=== PATIENT | male | born 1950 | race Hispanic/Latino ===

== ENCOUNTER 2017-01-11 17:33 | Emergency (ER) | payer OTHER ==
[~2017-01-11] VITALS: Ht 167.6 cm; Wt 68.2 kg
[2017-01-11 17:38] VITALS: BP 108/69; PULSE 92; RESP 16; O2SAT 97
[2017-01-11 20:16] VITALS: BP 108/63; PULSE 72; RESP 12; O2SAT 99
--- NOTE | 2017-01-11 20:39 | ED.REPORT ---
HPI-General Illness Date of Service Jan 11, 2017 ED Provider: Sea Bledsoe MD The pt is a 66 year old male with a history of anxiety and "possible anemia" who is brought to the ED due to syncope. The pt was walking into a store at 11: 00 today when he began to feel flushed and lightheaded. He then experienced a brief syncopal episode, waking up on the ground to another customer helping him to his feet. The pt landed on a carpet and admits to hitting his head. The pt experienced a similar episode yesterday after he stood up rapidly. He also admits to mild fatigue and chest congestion several days ago. These symptoms has since resolved and he does not believe that they are related to his episode today. He denies palpitations, racing heart, nausea, diaphoresis, hematochezia, black stools, decreased appetite or decreased fluid intake. He does admit that he has been feeling very anxious and that he may been hyperventilating prior to passing out. He states that he had tingling around his lips and his fingertips which in the past has been a sign that he is having a panic attack. Nursing Notes Stated Complaint: FAINTING/SEEN BY EMT THIS AM Chief Complaint: General Complaint Nursing Notes Reviewed: Yes Allergies: Coded Allergies: Contrast Media (Verified Allergy, Severe, 01/11/17) Scheduled Fluoxetine (Fluoxetine) 20 Mg Capsule 20 MG PO QAM General Time Seen by MD: 19:27 Chief Complaint Other (Syncope) Hx Obtained From: Patient, EMS Arrived By: Ambulance Sudden in Onset?: Yes Onset Occurred: 1 - 4 hours ago Recent Healthcare: Recent doctor visit Similar Sx Previous: Yes Past Medical History Past Medical History anxiety possible anemia Past Surgical History none reported Smoking History Unknown if Ever Smoker Ambulatory Status Independent Review of Systems chest congestion, resolved denies decreased appetite or decreased fluid intake denies melena Full Review of Systems Constitutional: Reports: Fatigue (resolved) Respiratory: Denies: Non-productive cough, Shortness of breath Cardiovascular: Denies: Chest pain GI: Denies: Abdominal pain, Hematochezia, Nausea Musculoskeletal: Denies: Back pain, Neck pain Skin: Denies Diaphoresis, Denies Rash Neurologic: Reports: Lightheaded, Syncope Complete sys rev & neg: except as marked. Physical Exam Vital Signs Vital Signs Date Time Temp Pulse Resp B/P Pulse Ox O2 Delivery O2 Flow Rate FiO2 01/11/17 22:33 36.4 76 20 117/63 100 Room Air 01/11/17 20:16 72 12 108/63 99 Room Air 01/11/17 17:38 92 16 108/69 97 Room Air Initial VS: Reviewed General/Constitutional: Awake, Alert Head / Eyes: Atraumatic, Normocephalic, PERRL, EOMI ENT: Atraumatic, Airway patent Mouth: Positive: Mucous membranes dry Neck: Atraumatic, Supple, Full range of motion no cervical tenderness, bony deformity or step-offs Respiratory / Chest: Atraumatic, Breath sounds NL, Breath sounds = bilat, No respiratory distress Cardiovascular: Heart rate NL, Regular rhythm, Heart sounds NL, No gallop, No murmurs, No rubs good distal pulses Abdomen: Atraumatic, Soft, Non-tender, No guarding, No rebound, No distention Back: Atraumatic, Full range of motion Upper Extremities Upper Extremity / MS: Atraumatic, Full range of motion Lower Extremity / Pelvis / MS: Atraumatic, Full range of motion no calf swelling or tenderness Skin: Atraumatic, Color NL, No rash, Warm, Dry Neurologic: Oriented X3, Speech NL, No motor deficits, No sensory deficits, CN II - XII intact no lateralizing neurological findings no pronator drift Psychiatric: Affect NL, Mood NL Interpretation & Diagnostics Lab Results Interpretation Result Diagram: 01/11/17210401/11/172104 Test 01/11/17 21:05 01/11/17 21:32 01/11/17 22:16 White Blood Count 6.5th/mm3 (3.8-10.1) Red Blood Count 4.01mil/mm3 (4.40-5.80) Hemoglobin 12.8g/dL (13.8-17.2) Hematocrit 38.1% (41.0-50.0) Mean Corpuscular Volume 95.0fL (81-100) Mean Corpuscular Hemoglobin 31.9pg (27.0-35.0) Mean Corpuscular Hemoglobin Concent 33.6% (32.0-37.0) Red Cell Distribution Width 13.5% (12.3-15.4) Platelet Count 234bil/L (150-400) Neutrophils (%) (Auto) 53.1% (40-74) Lymphocytes (%) (Auto) 32.4% (14-46) Monocytes (%) (Auto) 10.3% (4-12) Eosinophils (%) (Auto) 3.8% (0-5) Basophils (%) (Auto) 0.2% (0-3) Sodium Level 137mEq/L (134-144) Potassium Level 4.1mEq/L (3.5-5.2) Chloride Level 100mEq/L (97-108) Carbon Dioxide Level 24mmol/L (18-29) Blood Urea Nitrogen 15mg/dL (8-27) Creatinine 0.87mg/dL (0.76-1.27) Estimat Glomerular Filtration Rate 93mL/min (>59) Glucose Level 115mg/dL (60-99) Calcium Level 8.7mg/dL (8.5-10.1) Magnesium Level 2.2mg/dL (1.6-2.6) Total Bilirubin 0.3mg/dL (0.0-1.2) Aspartate Amino Transf (AST/SGOT) 29U/L (0-50) Alanine Aminotransferase (ALT/SGPT) 32U/L (0-44) Alkaline Phosphatase 88U/L (25-160) Troponin T 0.010ug/L (0.0-0.011) Total Protein 8.8g/dL (6.4-8.4) Albumin 3.8g/dL (3.4-5.0) Hold Pereira Top Tube Received (Received) Hold Urine Received (Received) ECG Interpretation ECG Interpretation: normal sinus rhythm with a rate of 69 normal axis normal interval no ST segment elevation no T wave inversions no prior EKG available for comparison Time: 19:48 Interpreted by: ED physician CT Head Interpretation IMPRESSION: 1. No acute intracranial abnormality. Dictated by: Shadi Vargas M.D. on 01/11/2017 at 21:23 Approved by: Shadi Vargas M.D. on 01/11/2017 at 21:25 Interpretation / Wet Read by: Interpret - Radiologist Re-Eval/Medical Decision Med Decision/Clinical Course The pt is a 66 year old male with a history of anxiety and "possible anemia" who is brought to the ED due to syncope. The pt was walking into a store at 11: 00 today when he began to feel flushed and lightheaded. He then experienced a brief syncopal episode, waking up on the ground to another customer helping him to his feet. The pt landed on a carpet and admits to hitting his head. The pt experienced a similar episode yesterday after he stood up rapidly. He also admits to mild fatigue and chest congestion several days ago. These symptoms has since resolved and he does not believe that they are related to his episode today. He denies palpitations, racing heart, nausea, diaphoresis, hematochezia, black stools, decreased appetite. He does admit that he may be somewhat dehydrated and that he has not been drinking enough fluids. He does admit that he has been feeling very anxious and that he may been hyperventilating prior to passing out. He states that he had tingling around his lips and his fingertips which in the past has been a sign that he is having a panic attack. 1 liter fluid bolus given in ED. EKG: normal sinus rhythm with a rate of 69 normal axis normal interval no ST segment elevation no T wave inversions no prior EKG available for comparison CBC unremarkable CMP unremarkable Troponin negative CT head unremarkable CT Head: IMPRESSION: 1. No acute intracranial abnormality. The patient presents with transient altered level of consciousness. Based on history, lack of post-ictal phase, or incontinence I think it is unlikely to be related to seizure. DDx includes but is not limited to: ACS, arrhythmia, PE, dissection, AAA, hypovolemia or vasovagal syncope. ECG does not show ischemia or conduction abnormality. There were no arrhythmias on telemetry but this cannot be excluded. PE, dissection and AAA are unlikely based on history, exam and evaluation. Patient has history consistent with dehydration, had positive orthostatic vital sign changes and improvement with IV hydration. I suspect there may also be a degree of panic/anxiety and hyperventilation as well. Patient does not desire admission for further workup and would like to follow- up with his primary care physician outpatient basis. At this time he is stable and in no apparent distress. Feel that this is appropriate. Prior to discharge follow-up and return precautions were reviewed in detail with the patient who verbalized understanding and agreement with the plan. The patient was discharged in stable condition. Source of Hx: Old records Time of Eval: 22:30 Patient Status: Condition improved Re-Evaluation/Progress Note: Pt rechecked, who is comfortable. The diagnosis and plan for discharge are discussed. The pt understands and agrees with the plan. All questions are addressed at this time. Counseled Regarding: Diagnosis, Lab results, Need for follow-up, When/why to return to ED Discharge & Departure Primary Impression: Syncope Syncope type: unspecified Qualified Code: R55 - Syncope and collapse Additional Impressions: Dehydration Anxiety Head trauma Encounter type: initial encounter Qualified Code: S09.90XA - Unspecified injury of head, initial encounter Disposition: Home Discharge Condition All VS Reviewed: Yes Condition: Stable Patient Instructions: Syncope (ED) Additional Instructions: Thank you for seeking care at the emergency room. Our primary goal today in the ED was to evaluate you for any life-threatening conditions. Your evaluation was reassuring. You should follow-up with your primary doctor in the next week. In the meantime , drink plenty of fluids, stand up slowly and sit down immediately if he started to feel lightheaded. You should return to the ED immediately if you develop any recurrent events of passing out, palpitations, headache, confusion, fevers, vomiting, cough, shortness of breath, chest pain, lightheadedness, weakness or any other concerning signs or symptoms. Thank you for letting us partake in your care today. Referrals: Nash Chapman MD (PCP) Scribe Attestation Portions of this note were transcribed by Maria L Dumont. I, Dr. Bledsoe personally performed the history, physical exam and medical decision-making; I reviewed and confirmed the accuracy of the information in the transcribed note. copies to: Nash Chapman MD, Beck O MD Jan 11, 2017 20:39 MARIA L DUMONT Jan 11, 2017 20:46
[2017-01-11] MEDS ORDERED: FLUO20CA25 PO (20:40)
[2017-01-11] MEDS ORDERED: 0.9% Sodium Chloride 1,000 ML IV ONE (20:45)
[2017-01-11 21:12] LABS: BASOPHILS % (AUTO) 0.2 % (0-3); EOSINOPHILS % (AUTO) 3.8 % (0-5); MONOCYTES % (AUTO) 10.3 % (4-12); Mean Corpuscular Hemoglobin 31.9 pg (27.0-35.0); NEUTROPHILS % (AUTO) 53.1 % (40-74); Platelet Count 234 bil/L (150-400)
--- NOTE | 2017-01-11 21:27 | DRSVH ---
PROCEDURE: CT BRAIN WITHOUT CONTRAST ([id number]) INDICATIONS: trauma TECHNIQUE: Noncontrast 4.5 mm thick angled axial sections acquired from the foramen magnum to the vertex, with c oronal reformats. COMPARISON: None. FINDINGS: Image quality: Excellent. CSF spaces: Basal cisterns are patent. No extra-axial fluid collections. There is mild cerebral vo lume loss with prominence of the ventricles and sulci. Brain: No intracranial hemorrhage, mass, mass effect. Acuna-white matter interface is preserved. Skull and face: Calvarium and visualized facial bones are intact, without suspicious lesions. Sinuses: Visualized sinuses and mastoids are clear. IMPRESSION: 1. No acute intracranial abnormality. Dictated by: Shadi Vargas M.D. on 01/11/2017 at 21:23 Approved by: Shadi Vargas M.D. on 01/11/2017 at 21:25
[2017-01-11 21:29] LABS: TROPONIN T 0.01 ug/L (0.0-0.011)
[2017-01-11 21:40] LABS: Magnesium 2.2 mg/dL (1.6-2.6)
[2017-01-11 22:33] VITALS: BP 117/63; PULSE 76; RESP 20; O2SAT 100
== END 2017-01-11 22:33 | disposition home or self-care (01) ==
LOC: SED 17:33
DX: R55 Syncope and collapse (principal); S09.8XXA Other specified injuries of head, initial encounter; E86.0 Dehydration; F41.9 Anxiety disorder, unspecified; W01.0XXA Fall on same level from slipping, tripping and stumbling without subsequent striking against object, initial encounter; Y93.01 Activity, walking, marching and hiking; Y99.8 Other external cause status; Y92.512 Supermarket, store or market as the place of occurrence of the external cause
CPT/HCPCS: 36415; 70450; 80053; 83735; 84484; 85025; 93005; 96360; 99285; J7030